=== PATIENT | male | born 1980 | race Caucasian/White ===

== ENCOUNTER → 2020-11-03 | Outpatient (CLI) | payer OTHER ==
--- NOTE | 2020-11-03 15:39 | RAD ---
EXAMINATION: XR RT TIBIA+FIBULA CLINICAL HISTORY: Right lower leg injury TECHNIQUE: XR RT TIBIA+FIBULA Number of Images/Views: 4 COMPARISON: 10/01/2020 FINDINGS: Nondisplaced fracture through the fibular head remains in similar alignment with resorption along the fracture plane. Prominent radiolucent fracture plane still visualized with no significant periosteal reaction/callus formation. Remainder of the study otherwise unchanged. IMPRESSION: Nondisplaced right fibular head fracture as described. Electronically signed by: Emmanuel Connelly DO (11/03/2020 3:36 PM) [id number]
== END ==
LOC: DXRAD 14:15
PROVIDERS: ATTEND Physician Assistant
DX: S82.831A Other fracture of upper and lower end of right fibula, initial encounter for closed fracture (principal); X58.XXXA Exposure to other specified factors, initial encounter; Y93.89 Activity, other specified; Y92.89 Other specified places as the place of occurrence of the external cause; Y99.8 Other external cause status
CPT/HCPCS: 73590

== ENCOUNTER → 2020-12-01 | Outpatient (CLI) | payer OTHER ==
--- NOTE | 2020-12-01 16:19 | RAD ---
2 views the right tib-fib compared to similar study dated November 02, 2020 for fracture follow-up, l eg pain. FINDINGS: Previously seen nondisplaced fracture of the fibular head is redemonstrated and appears maggie ssly unchanged in alignment, with some increased cortication suggesting ongoing healing. No new fract ure or acute osseous abnormality. IMPRESSION: 1. Healing fracture of the proximal fibular head. Electronically signed by: Geoff Brothers MD (12/01/2020 4:17 PM) [id number]
== END ==
LOC: DXRAD 12:38
PROVIDERS: ATTEND Physician Assistant
DX: S82.831A Other fracture of upper and lower end of right fibula, initial encounter for closed fracture (principal); X58.XXXA Exposure to other specified factors, initial encounter; Y93.89 Activity, other specified; Y92.89 Other specified places as the place of occurrence of the external cause; Y99.8 Other external cause status
CPT/HCPCS: 73590

== ENCOUNTER → 2021-01-01 | Outpatient (CLI) | payer OTHER ==
--- NOTE | 2021-01-01 14:26 | RAD ---
EXAM: RIGHT TIBIA/FIBULA 2 VIEWS. HISTORY: Fracture follow-up. COMPARISON: 12/01/2020. FINDINGS: A fracture of the fibular styloid remains nonunited. Sclerosis along the fracture lines are concerning for developing nonunion. The joint spaces and alignment of the knee and ankle are grossly maintained. IMPRESSION: 1. 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 Electronically signed by: Rosa Hugo MD (01/01/2021 2:24 PM) [id number]
== END ==
LOC: RAD 08:27
PROVIDERS: ATTEND Physician Assistant
DX: S82.831D Other fracture of upper and lower end of right fibula, subsequent encounter for closed fracture with routine healing (principal); X58.XXXD Exposure to other specified factors, subsequent encounter
CPT/HCPCS: 73590

== ENCOUNTER → 2021-03-05 | Outpatient (CLI) | payer OTHER ==
--- NOTE | 2021-03-05 16:05 | RAD ---
XR RT TIBIA+FIBULA 03/05/2021 8:19 AM INDICATION: Closed fracture of the head of the right fibula COMPARISON: 01/01/2021 TECHNIQUE: 4 views of the tibia and fibula are provided. FINDINGS/ IMPRESSION: 1. There is a persistent fracture line involving the head of the fibula medially oriented with increa sed mineralization as compared to prior examination. 2. No new fractures identified. Joint spaces are maintained. Electronically signed by: Marisol Weems MD (03/05/2021 4:02 PM) [id number]
== END ==
LOC: DXRAD 08:14
PROVIDERS: ATTEND Physician Assistant
DX: S82.831D Other fracture of upper and lower end of right fibula, subsequent encounter for closed fracture with routine healing (principal); X58.XXXD Exposure to other specified factors, subsequent encounter
CPT/HCPCS: 73590